=== PATIENT | female | born 1980 | race Caucasian/White ===

== ENCOUNTER 2021-03-16 14:01 | Emergency (ER) | payer BC ==
[2021-03-16] MEDS ORDERED: Fentanyl 100 MCG/2 ML VIAL ONE (19:16)
== END 2021-03-16 19:34 | disposition left against medical advice (07) ==
LOC: CSHERS 14:01
DX: S82.851A Displaced trimalleolar fracture of right lower leg, initial encounter for closed fracture (principal); W19.XXXA Unspecified fall, initial encounter
CPT/HCPCS: J3010